=== PATIENT | female | born 1990 | race Caucasian/White ===

== ENCOUNTER 2018-03-08 12:54 | Emergency (ER) | payer MEDICARE, MEDICAID ==
[~2018-03-08] VITALS: Ht 160 cm; Wt 59.0 kg
[~2018-03-08 12:54] MED LIST: AMOX-100 PO
[2018-03-08 13:02] VITALS: BP 129/54
[2018-03-08] MEDS ORDERED: HYDR-4353 PO (13:21)
[2018-03-08] MEDS ORDERED: AMOX-422 PO (13:21)
[2018-03-08] MEDS ORDERED: IBUP-1984 PO (13:21)
[2018-03-08] MEDS ORDERED: ibuprofen tablet 400 MG TABLET PO ONE (13:25)
== END 2018-03-08 13:35 | disposition home or self-care (01) ==
LOC: ER 12:54
DX: K08.89 Other specified disorders of teeth and supporting structures (principal); Z79.2 Long term (current) use of antibiotics; Z79.899 Other long term (current) drug therapy
CPT/HCPCS: 99283

== ENCOUNTER 2019-06-29 18:43 | Emergency (ER) | payer MEDICARE, MEDICAID ==
[~2019-06-29] VITALS: Ht 157.5 cm; Wt 54.5 kg
[2019-06-29] MEDS ORDERED: propofol 10mg/ml 20ml vial IV ONE (19:00)
[2019-06-29] MEDS ORDERED: normal saline 1000ML IV soln IVB ONE (19:00)
[2019-06-29] MEDS ORDERED: fentaNYL/PF 50MCG/1 ML 2ML syringe IV ONE (19:00)
--- NOTE | 2019-06-29 19:45 | NUR ---
moderate sedation for closed reduction on right shoulder was performed, at 1945 med were given and shoulder was repositioned.
[2019-06-29] MEDS ORDERED: HYDR-3965 PO (20:00)
--- NOTE | 2019-06-29 20:02 | NUR ---
pt is a lottle drowsey but is oriented her pain is reduced to a 3/10, vs are stable, will continue to monitor
[2019-06-29 20:22] VITALS: BP 113/74
== END 2019-06-29 20:27 | disposition home or self-care (01) ==
LOC: ER 18:43
DX: S43.084A Other dislocation of right shoulder joint, initial encounter (principal); Z88.1 Allergy status to other antibiotic agents; W10.9XXA Fall (on) (from) unspecified stairs and steps, initial encounter; Y93.01 Activity, walking, marching and hiking; Y92.89 Other specified places as the place of occurrence of the external cause; Y99.9 Unspecified external cause status
CPT/HCPCS: 23650; 73030; 73090; 96374; 99285; J2704; J3010; J7030